=== PATIENT | female | born 1995 | race Two or more races ===

== ENCOUNTER 2019-02-20 05:33 | Emergency (ER) | payer MEDICAID ==
[~2019-02-20] VITALS: Ht 177.8 cm; Wt 148.0 kg
[2019-02-20] MEDS ORDERED: IBUPROFEN 800MG TABLET PO ONE (06:30)
[2019-02-20 06:50] VITALS: BP 129/93
== END 2019-02-20 06:55 | disposition home or self-care (01) ==
LOC: ER 05:33
DX: J02.9 Acute pharyngitis, unspecified (principal); R03.0 Elevated blood-pressure reading, without diagnosis of hypertension
CPT/HCPCS: 81025; 99283